=== PATIENT | female | born 1945 | race Two or more races ===

== ENCOUNTER 2017-12-07 01:28 | Emergency (ER) | payer MEDICARE, BC ==
[~2017-12-07] VITALS: Ht 149.9 cm; Wt 82.4 kg
[2017-12-07 01:29] VITALS: BP 186/73
== END 2017-12-07 02:01 | disposition home or self-care (01) ==
LOC: ED 02:00
DX: J02.8 Acute pharyngitis due to other specified organisms (principal); E11.9 Type 2 diabetes mellitus without complications; I10 Essential (primary) hypertension
CPT/HCPCS: 99282